=== PATIENT | male | born 1935 | race Caucasian/White ===

== ENCOUNTER 2021-01-12 12:00 | Emergency (ER) | payer MEDICARE ==
[2021-01-12] MEDS ORDERED: Ondansetron 4 MG/2 ML SDV IVPUSH ONE (12:21)
--- NOTE | 2021-01-12 12:26 | EDM.PDOC ---
ED HPI GENERAL MEDICAL PROBLEM - General Chief Complaint: General Stated Complaint[facility] Time Seen by Provider: 01/12/21 12:10 Source of Information: Reports: Patient, Mcc Records History Limitations: Reports: No Limitations - History of Present Illness INITIAL COMMENTS - FREE TEXT/NARRATIVE: 85-year-old male sent by [facility] from [facility] for evaluation of nonspecific nausea. There is no mention of him having a fever. He was tested recently for COVID-19 and was found to be negative. He reports a mild cough bringing up some whitish phlegm .He does not think there was any color to it. He denies any problems voiding although he did have some urgency this morning. He never did vomit. At present he is not hungry. He states usually has a very good appetite. Other than that, he cannot really explain why he is here. The notation from staff at [facility] indicates that he has been not feeling well for the better part of 2 weeks. The symptoms seem to be nonspecific. They are wondering about him having problems with his heart and are wondering about a heart monitor. 02 sats are 94 to 95% on room air. He does not appear to be in any distress and he tries to answer questions to the best of his ability. And has early dementia and is very difficult to get a good history from. Apparently he will complain sometimes of jaw pain throat pain abdominal pain chest pain etc. in the nurses note normal pressure if anything is real. Onset: Today, Sudden Onset Date: 01/12/21 Onset Time: 10:00 Duration: Hour(s): Location: Reports: Abdomen (Is nauseated.) Quality: Reports: Other (Specific weakness and nausea.) Severity: Moderate Improves with: Reports: None Worsens with: Reports: None Context: Denies: Activity, Exercise, Lifting, Sick Contact, Trauma, Other Associated Symptoms: Reports: Headaches, Malaise, Nausea/Vomiting (Ports intermittent nausea to the nursing staff but is never vomited.), Shortness of Breath. 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 (see below) (Recent changes to any of his medications.) - Related Data Allergies Allergy/AdvReac Type Severity Reaction Status Date / Time No Known Allergies Allergy Verified 01/12/21 12:14 Past Medical History Cardiovascular History: Reports: Hypertension Musculoskeletal History: Reports: Osteoarthritis Neurological History: Reports: Alzheimers Disease - Past Surgical History GI Surgical History: Reports: Cholecystectomy Social & Family History - Living Situation & Occupation Living situation: Reports: Occupation: Retired Social History Comment: Currently a resident at [facility] ED ROS GENERAL - Review of Systems Review Of Systems: Unable To Obtain (She has impaired short-term memory.) Reason Not Obtained: Patient has early dementia and getting a good history is impossib ED EXAM, GENERAL - Physical Exam Exam: See Below Exam Limited By: Altered Mental Status (Markedly impaired short-term memory. Has early dementia.) General Appearance: Alert, WD/WN, No Apparent Distress, Other (Temperature is 36.4 degrees heart rate 65 and sinus respiratory is 18 with pulse ox of 97% on room air BP slightly elevated 177/74. Came down to 137/68.) Eye Exam: Bilateral Eye: Normal Inspection (No scleral icterus or blepharal pallor.), PERRL Throat/Mouth: Normal Inspection, Normal Lips, Normal Oropharynx, Other Head: Atraumatic (Is moist.), Normocephalic, Other (Overt signs of any head or facial trauma.) Neck: Normal Inspection, Supple, Non-Tender, Full Range of Motion, Other (No JVD). No: Carotid Bruit, Lymphadenopathy (L), Lymphadenopathy (R) Respiratory/Chest: No Respiratory Distress, Lungs Clear, Normal Breath Sounds, No Accessory Muscle Use, Rales Cardiovascular: Regular Rate, Rhythm, No Edema, No Gallop, No Murmur, No Rub. No: Normal Peripheral Pulses Peripheral Pulses: 1+: Posterior Tibial (L), Posterior Tibial (R), Dorsalis Pedis (L), Dorsalis Pedis (R), 2+: Carotid (L), Carotid (R) GI/Abdominal: Normal Bowel Sounds, Soft, Non-Tender, No Organomegaly, Distended (Is distended in the upper abdomen compatible with aerophagia. He is diffusely tympany to percussion. No palpable bladder.) (Male) Exam: No Hernia Back Exam: Normal Inspection, Full Range of Motion. No: CVA Tenderness (L), CVA Tenderness (R) Extremities: Normal Inspection, Normal Range of Motion, Non-Tender, Other. No: Pedal Edema (He is wearing compression stockings. He has no pedal edema.) Neurological: Alert, CN II-XII Intact Psychiatric: Normal Affect, Normal Mood Skin Exam: Warm, Dry, Intact, Normal Color, No Rash #1 Interpretation EKG Date: 01/12/21 Time: 12:50 Rhythm: NSR Rate (Beats/Min): 62 [place]: Normal P-Wave: Present (With first-degree AV block) QRS: Normal ST-T: Other (Nonspecific T wave inversion aVL) QT: Normal EKG Interpretation Comments: Borderline ECG Course - Vital Signs Last Recorded V/S: Last Vital Signs Temp 36.4 C 01/12/21 12:08 Pulse 65 01/12/21 12:08 Resp 18 01/12/21 12:08 BP 177/74 H 01/12/21 12:08 Pulse Ox 97 01/12/21 12:08 - Orders/Labs/Meds Orders: Active Orders 24 hr Category Date Time Status Bladder Scan [RC] ASDIRECTED Care 01/12/21 12:22 Active EKG Documentation Completion [RC] STAT Care 01/12/21 12:21 Active Abdomen 1V Flat [CR] Stat Exams 01/12/21 12:43 Taken CULTURE BLOOD [BC] Stat Lab 01/12/21 12:01 Received CULTURE BLOOD [BC] Stat Lab 01/12/21 13:19 Received Sodium Chloride 0.9% [Normal Saline] 1,000 ml Med 01/12/21 12:30 Active IV ASDIRECTED Blood Culture x2 Reflex Set [OM.PC] Stat Oth 01/12/21 12:22 Ordered Medication Orders Sodium Chloride (Normal Saline) 1,000 mls @ 150 mls/hr IV ASDIRECTED LISSETH Last Admin: 01/12/21 12:46 Dose: 150 mls/hr Documented by: ALIYA Labs: Laboratory Tests 01/12/21 01/12/21 01/12/21 Range/Units 12:45 12:45 12:45 WBC 7.30 (4.23-9.07) K/mm3 RBC 4.86 (4.63-6.08) M/mm3 Hgb 15.4 (13.7-17.5) gm/dl Hct 46.5 (40.1-51.0) % MCV 95.7 H (79.0-92.2) fl MCH 31.7 (25.7-32.2) pg MCHC 33.1 (32.2-35.5) g/dl RDW Std Deviation 48.0 H (35.1-43.9) fL Plt Count 389 H (163-337) K/mm3 MPV 9.5 (9.4-12.3) fl Neut % (Auto) 47.2 (34.0-67.9) % Lymph % (Auto) 33.7 (21.8-53.1) % [place] % (Auto) 13.2 H (5.3-12.2) % Eos % (Auto) 4.8 (0.8-7.0) Baso % (Auto) 0.8 (0.1-1.2) % Neut # (Auto) 3.45 (1.78-5.38) K/mm3 Lymph # (Auto) 2.46 (1.32-3.57) K/mm3 [place] # (Auto) 0.96 H (0.30-0.82) K/mm3 Eos # (Auto) 0.35 (0.04-0.54) K/mm3 Baso # (Auto) 0.06 (0.01-0.08) K/mm3 PT 10.4 (9.7-12.0) SECONDS INR 0.97 APTT 24.4 (21.7-31.4) SECONDS Sodium 141 (136-145) mEq/L Potassium 4.4 (3.5-5.1) mEq/L Chloride 103 (98-107) mEq/L Carbon Dioxide 31 (21-32) mEq/L Anion Gap 11.4 (5-15) BUN 16 (7-18) mg/dL Creatinine 1.2 (0.7-1.3) mg/dL Est Cr Clr Drug Dosing 45.82 mL/min Estimated GFR (MDRD) 58 (>60) mL/min BUN/Creatinine Ratio 13.3 L (14-18) Glucose 106 (83-115) mg/dL Lactic Acid (0.4-2.0) mmol/L Calcium 9.5 (8.5-10.1) mg/dL Magnesium 2.3 (1.8-2.4) mg/dl Total Bilirubin 0.4 (0.2-1.0) mg/dL AST 40 H (15-37) U/L ALT 60 (16-63) U/L Alkaline Phosphatase 86 (46-116) U/L CK-MB (CK-2) 2.4 (0-3.6) ng/ml Troponin I 0.056 (0.00-0.056) ng/mL C-Reactive Protein <0.2 (<1.0) mg/dL NT-Pro-B Natriuret Pep (0-450) pg/mL Total Protein 7.7 (6.4-8.2) g/dl Albumin 3.1 L (3.4-5.0) g/dl Globulin 4.6 gm/dL Albumin/Globulin Ratio 0.7 L (1-2) Lipase (73-393) U/L TSH 3rd Generation (0.358-3.74) uIU/mL Urine Color (Yellow) Urine Appearance (Clear) Urine pH (5.0-8.0) Ur Specific [place] (1.005-1.030) Urine Protein (Negative) Urine Glucose (UA) (Negative) Urine Ketones (Negative) Urine Occult Blood (Negative) Urine Nitrite (Negative) Urine Bilirubin (Negative) Urine Urobilinogen (0.2-1.0) Ur Leukocyte Esterase (Negative) Urine RBC (0-5) /hpf Urine WBC (0-5) /hpf Ur Epithelial Cells (0-5) /hpf Urine Bacteria (FEW) /hpf Urine Mucus (FEW) /hpf 01/12/21 01/12/21 01/12/21 Range/Units 12:45 12:45 12:45 WBC (4.23-9.07) K/mm3 RBC (4.63-6.08) M/mm3 Hgb (13.7-17.5) gm/dl Hct (40.1-51.0) % MCV (79.0-92.2) fl MCH (25.7-32.2) pg MCHC (32.2-35.5) g/dl RDW Std Deviation (35.1-43.9) fL Plt Count (163-337) K/mm3 MPV (9.4-12.3) fl Neut % (Auto) (34.0-67.9) % Lymph % (Auto) (21.8-53.1) % [place] % (Auto) (5.3-12.2) % Eos % (Auto) (0.8-7.0) Baso % (Auto) (0.1-1.2) % Neut # (Auto) (1.78-5.38) K/mm3 Lymph # (Auto) (1.32-3.57) K/mm3 [place] # (Auto) (0.30-0.82) K/mm3 Eos # (Auto) (0.04-0.54) K/mm3 Baso # (Auto) (0.01-0.08) K/mm3 PT (9.7-12.0) SECONDS INR APTT (21.7-31.4) SECONDS Sodium (136-145) mEq/L Potassium (3.5-5.1) mEq/L Chloride (98-107) mEq/L Carbon Dioxide (21-32) mEq/L Anion Gap (5-15) BUN (7-18) mg/dL Creatinine (0.7-1.3) mg/dL Est Cr Clr Drug Dosing mL/min Estimated GFR (MDRD) (>60) mL/min BUN/Creatinine Ratio (14-18) Glucose (83-115) mg/dL Lactic Acid 1.2 (0.4-2.0) mmol/L Calcium (8.5-10.1) mg/dL Magnesium (1.8-2.4) mg/dl Total Bilirubin (0.2-1.0) mg/dL AST (15-37) U/L ALT (16-63) U/L Alkaline Phosphatase (46-116) U/L CK-MB (CK-2) (0-3.6) ng/ml Troponin I (0.00-0.056) ng/mL C-Reactive Protein (<1.0) mg/dL NT-Pro-B Natriuret Pep 67 (0-450) pg/mL Total Protein (6.4-8.2) g/dl Albumin (3.4-5.0) g/dl Globulin gm/dL Albumin/Globulin Ratio (1-2) Lipase 82 (73-393) U/L TSH 3rd Generation (0.358-3.74) uIU/mL Urine Color (Yellow) Urine Appearance (Clear) Urine pH (5.0-8.0) Ur Specific [place] (1.005-1.030) Urine Protein (Negative) Urine Glucose (UA) (Negative) Urine Ketones (Negative) Urine Occult Blood (Negative) Urine Nitrite (Negative) Urine Bilirubin (Negative) Urine Urobilinogen (0.2-1.0) Ur Leukocyte Esterase (Negative) Urine RBC (0-5) /hpf Urine WBC (0-5) /hpf Ur Epithelial Cells (0-5) /hpf Urine Bacteria (FEW) /hpf Urine Mucus (FEW) /hpf 01/12/21 01/12/21 Range/Units 12:45 12:48 WBC (4.23-9.07) K/mm3 RBC (4.63-6.08) M/mm3 Hgb (13.7-17.5) gm/dl Hct (40.1-51.0) % MCV (79.0-92.2) fl MCH (25.7-32.2) pg MCHC (32.2-35.5) g/dl RDW Std Deviation (35.1-43.9) fL Plt Count (163-337) K/mm3 MPV (9.4-12.3) fl Neut % (Auto) (34.0-67.9) % Lymph % (Auto) (21.8-53.1) % [place] % (Auto) (5.3-12.2) % Eos % (Auto) (0.8-7.0) Baso % (Auto) (0.1-1.2) % Neut # (Auto) (1.78-5.38) K/mm3 Lymph # (Auto) (1.32-3.57) K/mm3 [place] # (Auto) (0.30-0.82) K/mm3 Eos # (Auto) (0.04-0.54) K/mm3 Baso # (Auto) (0.01-0.08) K/mm3 PT (9.7-12.0) SECONDS INR APTT (21.7-31.4) SECONDS Sodium (136-145) mEq/L Potassium (3.5-5.1) mEq/L Chloride (98-107) mEq/L Carbon Dioxide (21-32) mEq/L Anion Gap (5-15) BUN (7-18) mg/dL Creatinine (0.7-1.3) mg/dL Est Cr Clr Drug Dosing mL/min Estimated GFR (MDRD) (>60) mL/min BUN/Creatinine Ratio (14-18) Glucose (83-115) mg/dL Lactic Acid (0.4-2.0) mmol/L Calcium (8.5-10.1) mg/dL Magnesium (1.8-2.4) mg/dl Total Bilirubin (0.2-1.0) mg/dL AST (15-37) U/L ALT (16-63) U/L Alkaline Phosphatase (46-116) U/L CK-MB (CK-2) (0-3.6) ng/ml Troponin I (0.00-0.056) ng/mL C-Reactive Protein (<1.0) mg/dL NT-Pro-B Natriuret Pep (0-450) pg/mL Total Protein (6.4-8.2) g/dl Albumin (3.4-5.0) g/dl Globulin gm/dL Albumin/Globulin Ratio (1-2) Lipase (73-393) U/L TSH 3rd Generation 3.986 H (0.358-3.74) uIU/mL Urine Color Yellow (Yellow) Urine Appearance Clear (Clear) Urine pH 7.0 (5.0-8.0) Ur Specific [place] 1.020 (1.005-1.030) Urine Protein Negative (Negative) Urine Glucose (UA) Negative (Negative) Urine Ketones Negative (Negative) Urine Occult Blood Negative (Negative) Urine Nitrite Negative (Negative) Urine Bilirubin Negative (Negative) Urine Urobilinogen 0.2 (0.2-1.0) Ur Leukocyte Esterase Negative (Negative) Urine RBC 0-5 (0-5) /hpf Urine WBC 0-5 (0-5) /hpf Ur Epithelial Cells 0-5 (0-5) /hpf Urine Bacteria Not seen (FEW) /hpf Urine Mucus Not seen (FEW) /hpf Meds: Medications Generic Name Dose Route Start Last Admin Trade Name Freq PRN Reason Stop Dose Admin Sodium Chloride 1,000 mls @ 150 mls/hr 01/12/21 12:30 01/12/21 12:46 Normal Saline IV 150 mls/hr ASDIRECTED LISSETH Administration Discontinued Medications Generic Name Dose Route Start Last Admin Trade Name Freq PRN Reason Stop Dose Admin Ondansetron HCl 4 mg 01/12/21 12:21 01/12/21 12:44 Zofran IVPUSH 01/12/21 12:22 4 mg ONETIME ONE Administration - Radiology Interpretation Free Text/Narrative:: 85-year-old male presents to the ED per [facility] from [facility]. Appears that he has been experiencing nonspecific multitude of complaints over the last 2 weeks. He has early dementia with markedly impaired short-term memory. Therefore no useful history could be gleaned from the patient. At the time my examination had no complaints. He has been tested for Covid and he is negative. He claims to have a bit of a cough with no obvious color to the sputum. Afebrile on examination heart was sinus rhythm with no murmurs identified. ECG shows no signs of any acute problems. Plan he will have routine labs performed blood cultures performed urinalysis and a KUB and chest x-ray performed. - Re-Assessments/Exams Free Text/Narrative Re-Assessment/Exam: 01/12/21 12:57 bladder scan done post void revealed 47 mils and 80 mils on the second attempt. Both of these are okay. 01/12/21 13:09 portable chest x-ray reveals no cardiomegaly. Parenchymal portions of the lungs are clear with no pleural effusions or pneumothorax. 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 Serum TSH will thus be ordered. KUB reveals increased stool throughout a good portion of the large bowel. This includes the right hemicolon transverse colon and rectal vault as well as the descending colon. There is a lot of air distending his stomach compatible with aerophagia. 01/12/21 13:19 Initial white count is 7.30 with auto differential revealing 47.2% neutrophils. Hemoglobin is 15.4 with hematocrit of 46.5 MCV minimally elevated at 95.7. Platelet count 389,000. Urinalysis shows no signs of infection is completely normal. 01/12/21 14:05 PT is 10.4 with an INR of 0.97. PT TD is 24.4. Sodium 141 with potassium 4.4. Chloride 103 with a bicarb of 31. Anion gap is 11.4. BUN is 16 with a creatinine 1.2 and a GFR of 58. Glucose 106 with a lactic acid of 1.2. Calcium is 9.5 with a magnesium of 2.3. Bilirubin is 0.4. AST slightly elevated at 40 ALT normal at 60 alk phosphatase normal at 86. CK-MB fraction is 2.4 with a bone and I of 0.056 upper limits of normal. C-reactive protein less than 0.2. BNP 67. Total protein 7.7 albumin fraction slightly low at 3.1 lipase is 82 TSH is 3.98. Normal in our lab is up to 3.74. I would advise aving thyroid function checked in 4 months time which is slightly elevated indicating subclinical hypothyroidism. The urinalysis is negative for any signs of infection. 01/12/21 14:19 Plan will be to send the patient back to [facility] and start him on MiraLAX powder daily 17 g to prevent constipation from occurring. In 4 months time he needs a repeat TSH as he has subclinical hypothyroidism at this time and is unlikely to benefit from thyroid replacement hormone at this time. Departure - Departure Time of Disposition: 14:34 Disposition: Home, Self-Care 01 Condition: Fair Clinical Impression: Constipation by delayed colonic transit, Aerophagia, Subclinical hypothyroidism - Discharge Information *PRESCRIPTION DRUG MONITORING PROGRAM REVIEWED*: Not Applicable *COPY OF PRESCRIPTION DRUG MONITORING REPORT IN PATIENT EMMA: Not Applicable Referrals: Cosmo Hodge MD [Primary Care Provider] - Forms: ED Department Discharge Additional Instructions: Evaluation in the emergency room today in regards to a multitude of nonspecific complaints such as nausea, intermittent chest pain, abdominal discomfort,. 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 Suggest repeat TSH checkup in 4 months time. Chest x-ray was otherwise clear ECG was normal cardiac markers normal all labs proved to be normal. X-ray of the abdomen reveals diffuse constipation with a large amount of stool throughout most of the 4-1/2 feet of colon. There is a large amount of air distending the stomach indicating that he is an air swallow her which we call aerophagia which will precipitate burping belching and intermittent chest discomfort as the stomach full of air will push up on the diaphragm at times. It is my suggestion that he go on MiraLAX powder 17 g once daily which will keep his bowels regular. Otherwise no changes to medications are to be made. Follow-up with personal care physician if any further problems occur. Sepsis Event Note (ED) - Evaluation Sepsis Screening Result: No Definite Risk - Focused Exam Vital Signs: Vital Signs Temp Pulse Resp BP Pulse Ox 01/12/21 12:08 36.4 C 65 18 177/74 H 97 - My Orders Last 24 Hours: My Active Orders 01/12/21 12:01 CULTURE BLOOD [BC] Stat 01/12/21 12:21 EKG Documentation Completion [RC] STAT 01/12/21 12:22 Bladder Scan [RC] ASDIRECTED Blood Culture x2 Reflex Set [OM.PC] Stat 01/12/21 12:30 Sodium Chloride 0.9% [Normal Saline] 1,000 ml IV ASDIRECTED 01/12/21 12:43 Abdomen 1V Flat [CR] Stat 01/12/21 13:19 CULTURE BLOOD [BC] Stat - Assessment/Plan Last 24 Hours: My Active Orders 01/12/21 12:01 CULTURE BLOOD [BC] Stat 01/12/21 12:21 EKG Documentation Completion [RC] STAT 01/12/21 12:22 Bladder Scan [RC] ASDIRECTED Blood Culture x2 Reflex Set [OM.PC] Stat 01/12/21 12:30 Sodium Chloride 0.9% [Normal Saline] 1,000 ml IV ASDIRECTED 01/12/21 12:43 Abdomen 1V Flat [CR] Stat 01/12/21 13:19 CULTURE BLOOD [BC] Stat
[2021-01-12] MEDS ORDERED: Sodium Chloride 0.9% 1,000 ML IV SCH (12:30)
--- NOTE | 2021-01-12 13:25 | CR ---
Chest: Portable view of the chest was obtained. Comparison: No previous chest imaging is available. Heart size is within normal limits for portable technique. Tortuous thoracic aorta is seen. Lungs show no acute parenchymal change. Bony structures show nothing acute. Impression: 1. Nothing acute is appreciated on portable chest x-ray. Diagnostic code #1
--- NOTE | 2021-01-12 14:18 | CR ---
Abdomen: Supine view of the abdomen was obtained. Comparison: No previous abdominal imaging. Minimal degenerative change is noted within the spine. Previous cholecystectomy is noted. Moderate joint space narrowing is noted within the right hip. Calcifications are noted within the pelvis which are felt compatible phleboliths. Mild degenerative change is noted within the sacroiliac joints. Bowel gas pattern appears normal. No soft tissue abnormality is definitely appreciated. Impression: 1. Findings as noted above. 2. Nothing acute is seen. Diagnostic code #2
== END 2021-01-12 15:45 | disposition home or self-care (01) ==
LOC: JD.ED 12:00
DX: K59.01 Slow transit constipation (principal); E03.9 Hypothyroidism, unspecified; I10 Essential (primary) hypertension; G30.9 Alzheimer's disease, unspecified; F02.80 Dementia in other diseases classified elsewhere, unspecified severity, without behavioral disturbance, psychotic disturbance, mood disturbance, and anxiety; R06.02 Shortness of breath
CPT/HCPCS: 36415; 51798; 71045; 74018; 80053; 81001; 82553; 83605; 83690; 83735; 83880; 84443; 84484; 85025; 85610; 85730; 86140; 87040; 93005; 96374; 99285; J2405; J7030; 93010; 99284